=== PATIENT | female | born 2000 | race Caucasian/White ===

== ENCOUNTER 2022-09-24 07:24 | Emergency (ER) | payer MEDICAID, OTHER ==
[~2022-09-24] VITALS: Ht 167.6 cm; Wt 61.4 kg
[2022-09-24] MEDS ORDERED: LIDOCAINE 1% 10 ML VIAL SQ ONE (08:45)
[2022-09-24] MEDS ORDERED: PERTUSS(ACELL),DIPH,TET VAC/PF 0.5 ML SYRINGE IM. ONE (09:00)
[2022-09-24 09:11] VITALS: BP 137/77
== END 2022-09-24 09:12 | disposition home or self-care (01) ==
LOC: EMS 07:26
DX: S41.112A Laceration without foreign body of left upper arm, initial encounter (principal); W26.8XXA Contact with other sharp object(s), not elsewhere classified, initial encounter; Y93.89 Activity, other specified; Y92.89 Other specified places as the place of occurrence of the external cause; Y99.0 Civilian activity done for income or pay
CPT/HCPCS: 99283; 90715; 90471; 12004; J3490